=== PATIENT | female | born 1985 | race Caucasian/White ===

== ENCOUNTER 2020-05-15 10:55 | Observation (INO) | payer MEDICAID ==
[~2020-05-15] VITALS: Ht 157.5 cm; Wt 78.0 kg
[2020-05-15] MEDS ORDERED: RINGERS SOLUTION,LACTATED 1,000 ML IV SCH (11:45)
[2020-05-15] MEDS ORDERED: DEXTROSE 5%-LACTATED RINGERS 1,000 ML IV ONE (11:45)
[2020-05-15 11:49] VITALS: BP 124/80
[2020-05-15 12:50] LABS: BASOPHILS % (AUTO) 0.4 % (0.0-2.0); EOSINOPHILS % (AUTO) 2.9 % (1.0-6.0); HEMATOCRIT 35.4 % (36-46); HEMOGLOBIN 11.7 g/dL (12.0-16.0); LYMPHOCYTES # (AUTO) 1.5 K/uL (1.0-4.8); LYMPHOCYTES % (AUTO) 15.6 % (22.0-44.0); MEAN CORPUSCULAR HEMOGLOBIN 29.5 pg (26.0-34.0); MEAN CORPUSCULAR HGB CONC 32.9 G/dL (31.0-37.0); MEAN CORPUSCULAR VOLUME 90 fL (80-100); MONOCYTES # (AUTO) 0.5 K/uL (0.1-1.0); MONOCYTES % (AUTO) 5.1 % (2.0-9.0); NEUTROPHILS # (AUTO) 7.2 K/uL (1.8-7.7); PLATELET COUNT (AUTO)-OB 274 K/uL (150-450); RED BLOOD CELL COUNT(AUTO) 3.96 MIL/uL (4.00-5.20)
[2020-05-15 13:10] LABS: ANION GAP 9 mmol/L (8-16); CALCIUM, TOTAL 8.4 mg/dL (8.8-10.5); CARBON DIOXIDE 22 mmol/L (22-29); CHLORIDE 104 mmol/L (98-107); CREATININE 0.74 mg/dL (0.60-1.30); GLOMERULAR FILTR. RATE CALC > 60 mL/min (>60); GLUCOSE,RANDOM 123 mg/dL (70-110); POTASSIUM 3.3 mmol/L (3.5-5.1); SODIUM SERUM 135 mmol/L (136-145); UREA NITROGEN, BLOOD 8 mg/dL (7-18)
[2020-05-15 13:16] LABS: ALANINE AMINOTRANSFERASE 18 U/L (12-78); ALBUMIN 2.5 g/dL (3.4-5.0); ALKALINE PHOSPHATASE 66 U/L (46-116); ASPARTATE AMINOTRANSFERASE 16 U/L (15-37); BILIRUBIN,TOTAL 0.1 mg/dL (0.1-1.0); TOTAL PROTEIN, SERUM 6.9 g/dL (6.4-8.2)
[2020-05-15] MEDS ORDERED: POTASSIUM CHLORIDE 20 MEQ ER TABLET PO ONE (14:00)
== END 2020-05-15 14:40 | disposition home or self-care (01) ==
LOC: 4S 10:55
PROVIDERS: ADMIT Obstetrics & Gynecology; ATTEND Obstetrics & Gynecology
DX: Z03.818 Encounter for observation for suspected exposure to other biological agents ruled out (principal); O26.893 Other specified pregnancy related conditions, third trimester; R19.7 Diarrhea, unspecified; Z3A.30 30 weeks gestation of pregnancy
CPT/HCPCS: 36415; 59025; 76811; 80053; 85025; 87635; 96360; 96361; G0378; 96366

== ENCOUNTER 2020-07-17 13:10 | Inpatient (IN) | payer MEDICAID ==
[2020-07-17] MEDS ORDERED: OXYTOCIN 30 UNITS/LACT RINGERS 500 ML IV ONE (13:21)
[2020-07-17] MEDS ORDERED: RINGERS SOLUTION,LACTATED 1,000 ML IV PRN (13:21)
[2020-07-17] MEDS ORDERED: METOCLOPRAMIDE HCL 5 MG/ML 2 ML VIAL IVP PRN (13:30)
[2020-07-17] MEDS ORDERED: LIDOCAINE/PF 1% 30 ML VIAL INJ PRN (13:30)
[2020-07-17] MEDS ORDERED: CITRIC ACID/SODIUM CITRATE 30 ML SOLUTION UDCUP PO PRN (13:30)
[2020-07-17] MEDS ORDERED: FentaNYL CITRATE-PF 100 MCG/2 ML VIAL IVP PRN (13:30)
[2020-07-17 14:35] LABS: COVID AG,FIA SOURCE NASOPHARYNGEAL
[2020-07-17 14:47] LABS: BASOPHILS % (AUTO) 0.5 % (0.0-2.0); EOSINOPHILS % (AUTO) 2.6 % (1.0-6.0); HEMOGLOBIN 12.1 g/dL (12.0-16.0); LYMPHOCYTES # (AUTO) 1.8 K/uL (1.0-4.8); LYMPHOCYTES % (AUTO) 17.9 % (22.0-44.0); MEAN CORPUSCULAR HEMOGLOBIN 30.2 pg (26.0-34.0); MEAN CORPUSCULAR HGB CONC 33.5 G/dL (31.0-37.0); MEAN CORPUSCULAR VOLUME 90 fL (80-100); MONOCYTES # (AUTO) 0.4 K/uL (0.1-1.0); MONOCYTES % (AUTO) 3.8 % (2.0-9.0); NEUTROPHILS # (AUTO) 7.5 K/uL (1.8-7.7); NEUTROPHILS % (AUTO) 75.2 % (40.0-70.0); PLATELET COUNT (AUTO)-OB 295 K/uL (150-450); RED BLOOD CELL COUNT(AUTO) 3.99 MIL/uL (4.00-5.20); RED CELL DISTRIBUTION WIDTH 16.5 % (11.5-14.5)
[2020-07-17] MEDS: RINGERS SOLUTION,LACTATED 1,000 ML IV SCH ×2 (14:53→22:13)
[2020-07-17] MEDS: MISOPROSTOL 50 MCG TABLET PO SCH ×2 (14:53→19:29)
[2020-07-17] MEDS ORDERED: CALCIUM CARBONATE 500 MG CHEWABLE TABLET CHEW ONE (16:15)
[2020-07-17] MEDS ORDERED: SODIUM PHOS/SODIUM BIPHOS 133 ML ENEMA PR ONE (17:45)
[2020-07-17] MEDS ORDERED: VALA500T42 PO (18:20)
[2020-07-17] MEDS ORDERED: PREN-217 PO (18:27)
[2020-07-17] MEDS ORDERED: MACR100 PO (18:27)
[2020-07-17] MEDS ORDERED: OXYGEN THERAPY IH SCH (20:00)
[2020-07-17] MEDS ORDERED: ROPIVACAINE HCL/PF 0.2% 100 ML ED ONE (23:55)
[2020-07-18] MEDS ORDERED: ROPIVACAINE HCL/PF 0.2% 100 ML ED PRN (00:18)
[2020-07-18] MEDS ORDERED: DiphenhydrAMINE HCL 50 MG/ML VIAL IVP PRN ×2 (00:30→09:15)
[2020-07-18] MEDS ORDERED: NALBUPHINE HCL 10 MG/ML VIAL IVP PRN ×3 (00:30→09:15)
[2020-07-18] MEDS ORDERED: MINERAL OIL 30 ML UDCUP VG ONE (00:45)
[2020-07-18] MEDS: ONDANSETRON HCL 4 MG/2 ML VIAL IVP PRN ×2 (00:49→07:43)
[2020-07-18] MEDS: RINGERS SOLUTION,LACTATED 1,000 ML IV SCH ×2 (01:47→06:30)
[2020-07-18] MEDS ORDERED: CALCIUM CARBONATE 500 MG CHEWABLE TABLET CHEW ONE (02:00)
[2020-07-18] MEDS ORDERED: ACETAMINOPHEN 325 MG TABLET PO PRN (04:45)
[2020-07-18] MEDS ORDERED: RINGERS SOLUTION,LACTATED 1,000 ML IV ONE (08:28)
[2020-07-18] MEDS ORDERED: SODIUM CHLORIDE 0.9% 1,000 ML ONE (08:28)
[2020-07-18] MEDS ORDERED: LIDOCAINE/PF 2% 5 ML VIAL ONE (08:28)
[2020-07-18] MEDS ORDERED: GENTAMICIN 100 MG/NACL ISO-OSM 50 ML IV ONE ×2 (08:54→09:00)
[2020-07-18] MEDS ORDERED: CLINDAMYCIN 900 MG/D5% WATER 0 ML IV ONE (08:55)
[2020-07-18] MEDS ORDERED: GENTAMICIN IV ONE (08:56)
[2020-07-18] MEDS ORDERED: NACL ISO OSM IV ONE (08:56)
[2020-07-18] MEDS ORDERED: CLINDAMYCIN 600 MG/D5% WATER 50 ML IV ONE (09:00)
[2020-07-18] MEDS ORDERED: MEPERIDINE-PF 25 MG/ML VIAL IVP PRN (09:15)
[2020-07-18] MEDS ORDERED: FentaNYL CITRATE-PF 100 MCG/2 ML VIAL IVP PRN ×2 (09:15)
[2020-07-18] MEDS ORDERED: NALOXONE HCL 0.4 MG/ML VIAL IVP PRN (09:15)
[2020-07-18] MEDS ORDERED: MORPHINE SULFATE 10 MG/ML SYRINGE IVP PRN (09:15)
[2020-07-18] MEDS ORDERED: ONDANSETRON HCL 4 MG/2 ML VIAL IVP PRN (09:15)
[2020-07-18] MEDS ORDERED: GUM MASTIC/STORAX/MSAL/ALCOHOL LIQUID 0.67 ML VIAL TP ONE (09:28)
[2020-07-18] MEDS ORDERED: FentaNYL CITRATE-PF 100 MCG/2 ML VIAL ONE (09:52)
[2020-07-18] MEDS ORDERED: GLYCERIN PR PRN (10:00)
[2020-07-18] MEDS ORDERED: MEASLES/MUMPS/RUBELLA VACCINE, LIVE 0.5 ML/VIAL SQ ONE (10:00)
[2020-07-18] MEDS ORDERED: ACETAMINOPHEN 1000 MG/ISO-OSM 100 ML IV ONE (10:10)
[2020-07-18] MEDS: HYDROmorphone 2 MG/ML SYRINGE IVP PRN ×3 (10:12→11:07)
[2020-07-18] MEDS: ACETAMINOPHEN 1000 MG/ISO-OSM 100 ML IV SCH ×2 (10:12→18:08)
[2020-07-18] MEDS ORDERED: KETOROLAC TROMETHAMINE 30 MG/ML VIAL IVP SCH (15:00)
[2020-07-18] MEDS ORDERED: LANOLIN 7 GM OINTMENT TP PRN (19:00)
[2020-07-18] MEDS ORDERED: OXYGEN THERAPY IH SCH ×3 (20:00)
[2020-07-18] MEDS: OxyCODONE HCL/ACETAMINOPHEN 5-325 MG TABLET PO PRN (20:04)
[2020-07-18] MEDS: SENNA/DOCUSATE SODIUM 8.6-50 MG TABLET PO SCH (21:28)
[2020-07-19] MEDS: IBUPROFEN 600 MG TABLET PO PRN ×4 (01:53→18:10)
[2020-07-19] MEDS: OxyCODONE HCL/ACETAMINOPHEN 5-325 MG TABLET PO PRN ×7 (01:54→22:38)
[2020-07-19] MEDS ORDERED: ONDANSETRON HCL 4 MG/2 ML VIAL PO PRN (03:30)
[2020-07-19] MEDS: ONDANSETRON HCL 4 MG TABLET PO PRN ×2 (03:59→12:01)
[2020-07-19 06:41] LABS: BASOPHILS % (AUTO) 0.2 % (0.0-2.0); EOSINOPHILS % (AUTO) 2.3 % (1.0-6.0); HEMATOCRIT 30.6 % (36-46); HEMOGLOBIN 10.3 g/dL (12.0-16.0); LYMPHOCYTES # (AUTO) 2.1 K/uL (1.0-4.8); LYMPHOCYTES % (AUTO) 16.9 % (22.0-44.0); MEAN CORPUSCULAR HEMOGLOBIN 30.3 pg (26.0-34.0); MEAN CORPUSCULAR HGB CONC 33.6 G/dL (31.0-37.0); MEAN CORPUSCULAR VOLUME 90 fL (80-100); MONOCYTES # (AUTO) 0.6 K/uL (0.1-1.0); MONOCYTES % (AUTO) 4.9 % (2.0-9.0); NEUTROPHILS # (AUTO) 9.3 K/uL (1.8-7.7); NEUTROPHILS % (AUTO) 75.7 % (40.0-70.0); PLATELET COUNT (AUTO)-OB 215 K/uL (150-450); RED BLOOD CELL COUNT(AUTO) 3.39 MIL/uL (4.00-5.20); RED CELL DISTRIBUTION WIDTH 16.5 % (11.5-14.5)
[2020-07-19] MEDS ORDERED: KETOROLAC TROMETHAMINE 60 MG/2 ML VIAL IM ONE (07:14)
[2020-07-19] MEDS ORDERED: OXYTOCIN 10 UNITS/ML VIAL IM ONE (07:14)
[2020-07-19] MEDS: SENNA/DOCUSATE SODIUM 8.6-50 MG TABLET PO SCH ×2 (09:25→21:33)
[2020-07-19] MEDS: SIMETHICONE 80 MG CHEWABLE TABLET CHEW PRN ×2 (09:26→14:47)
[2020-07-19] MEDS: MAGNESIUM HYDROXIDE SUSPENSION 30 ML UDCUP PO PRN (23:13)
[2020-07-20] MEDS: IBUPROFEN 600 MG TABLET PO PRN ×2 (00:37→09:02)
[2020-07-20] MEDS ORDERED: FentaNYL CITRATE-PF 100 MCG/2 ML VIAL IVP ONE (05:39)
[2020-07-20] MEDS ORDERED: MORPHINE SULFATE/PF 0.5 MG/ML 10 ML AMP IVP ONE (05:39)
[2020-07-20] MEDS: OxyCODONE HCL/ACETAMINOPHEN 5-325 MG TABLET PO PRN ×2 (05:40→11:44)
[2020-07-20] MEDS: MAGNESIUM HYDROXIDE SUSPENSION 30 ML UDCUP PO PRN (09:01)
[2020-07-20] MEDS: SENNA/DOCUSATE SODIUM 8.6-50 MG TABLET PO SCH (09:01)
[2020-07-20] MEDS ORDERED: PERCT PO (10:03)
[2020-07-20] MEDS ORDERED: IBUP-2071 PO (10:04)
[2020-07-20] MEDS ORDERED: DOCU-275 PO (10:04)
[2020-07-20] MEDS ORDERED: FERR-89 PO (10:04)
[2020-07-20] MEDS ORDERED: SODIUM PHOS/SODIUM BIPHOS 133 ML ENEMA PR ONE (13:00)
== END 2020-07-20 14:35 | disposition home or self-care (01) | DRG 540 ==
LOC: INTOOBSV 13:10 → UNDOADMOB 13:10 → OBSVTOIN 13:10 → 4S 13:10 → INTOOBSV 07-18 11:41 → 4S 07-18 11:41 → OBSVTOIN 07-18 11:41 → 4S 07-18 11:41 → UNDOADMOB 07-18 11:41 → 4S 07-18 11:42
PROVIDERS: ADMIT Obstetrics & Gynecology; ATTEND Obstetrics & Gynecology
PROC: 10D00Z1 Extraction of Products of Conception, Low, Open Approach (ICD-10-PCS; principal; 2020-07-18)
DX: O76 Abnormality in fetal heart rate and rhythm complicating labor and delivery (principal); O77.0 Labor and delivery complicated by meconium in amniotic fluid; Z3A.39 39 weeks gestation of pregnancy; Z37.0 Single live birth; Z03.818 Encounter for observation for suspected exposure to other biological agents ruled out
CPT/HCPCS: 86850; 86900; 86901; 87426; J0131; J1170; J1580; J1885; J2270; J2274; J2405; J2590; J2765; J2795; J3010; J3490; J7030; J7120; Q0162